=== PATIENT | male | born 1980 | race Caucasian/White ===

== ENCOUNTER 2018-11-24 22:34 | Emergency (ER) | payer MEDICARE ==
[~2018-11-24] VITALS: Ht 175.3 cm; Wt 117.9 kg
[2018-11-24 22:39] VITALS: Ht 175.3 cm; Wt 117.9 kg
[2018-11-24] MEDS ORDERED: LYRICA75 MG PO (22:40)
[2018-11-24] MEDS ORDERED: HYDROCODON-ACE1 EA10 PO (22:40)
[2018-11-25 01:49] VITALS: BP 131/74
[2018-11-25] MEDS ORDERED: TORADOL10 MG PO (20:32)
[2018-11-25 23:25] VITALS: Ht 175.3 cm; Wt 117.9 kg
== END 2018-11-25 01:49 | disposition home or self-care (01) ==
LOC: D.ER 22:34
DX: M54.5 Low back pain (principal)

== ENCOUNTER 2018-11-25 18:19 | Inpatient (IN) | payer MEDICARE ==
[~2018-11-25] VITALS: Ht 175.3 cm; Wt 118.2 kg
[~2018-11-25 18:19] MED LIST: HYDROCODON-ACE1 EA10 PO; LYRICA75 MG PO
[2018-11-25] MEDS ORDERED: TORADOL10 MG PO (20:32)
[2018-11-25 23:25] VITALS: BP 128/86; Ht 175.3 cm; Wt 118.2 kg
[2018-11-26] VITALS: BP 128/86
[2018-11-26 04:00] VITALS: BP 113/56
[2018-11-26 08:05] VITALS: BP 110/56
[2018-11-26 11:57] LABS: BASOPHILS 0.1 % (0-2); EOSINOPHILS 0 % (0-7); HEMATOCRIT 43.9 % (42.0-54.0); HEMOGLOBIN 14.9 g/dL (13.5-17.5); IMMATURE GRANULOCYTES 0.2 % (0-5); MCH 26.8 pg (26.0-34.0); MCHC 33.9 g/dL (31.0-37.0); MCV 79.1 fL (80.0-100.0); MEAN PLATELET VOLUME 10.1 fL (7.4-10.4); MONOCYTES 0.4 % (2-11); NEUTROPHILS 93.3 % (40-80); PLATELET COUNT 227 10x3/uL (130-400); RBC 5.55 10x6/uL (4.20-6.10); RDW 12.6 % (11.5-14.5); WBC 12.7 10x3/uL (4.8-10.8)
[2018-11-26 12:04] LABS: ALBUMIN 3.4 g/dL (3.4-5.0); BILIRUBIN - TOTAL 0.46 mg/dL (0.2-1.3); CALCIUM 9.5 mg/dL (8.5-10.1); CARBON DIOXIDE 22.9 mmol/L (21.0-32.0); CREATININE - SERUM 1.4 mg/dL (0.6-1.3); POTASSIUM - SERUM 4.9 mmol/L (3.5-5.1); PROTEIN - SERUM 7.7 g/dL (6.4-8.2)
[2018-11-26 12:42] VITALS: BP 146/89
[2018-11-26 17:16] VITALS: BP 121/89
[2018-11-26 19:48] VITALS: BP 128/57
[2018-11-27 00:59] VITALS: BP 135/81
[2018-11-27 05:08] VITALS: BP 110/63
[2018-11-27 06:04] LABS: BASOPHILS 0 % (0-2); EOSINOPHILS 0 % (0-7); HEMATOCRIT 40.8 % (42.0-54.0); IMMATURE GRANULOCYTES 0.3 % (0-5); LYMPHOCYTES 5.1 % (15-50); MCH 26.8 pg (26.0-34.0); MCHC 34.3 g/dL (31.0-37.0); MEAN PLATELET VOLUME 9.8 fL (7.4-10.4); MONOCYTES 1.5 % (2-11); NEUTROPHILS 93.1 % (40-80); PLATELET COUNT 242 10x3/uL (130-400); RBC 5.23 10x6/uL (4.20-6.10); RDW 12.8 % (11.5-14.5)
[2018-11-27 06:25] LABS: ALKALINE PHOSPHATASE 137 U/L (46-116); CALCIUM 9.1 mg/dL (8.5-10.1); CARBON DIOXIDE 23.5 mmol/L (21.0-32.0); CHLORIDE - SERUM 102 mmol/L (98-107); CREATININE - SERUM 1.1 mg/dL (0.6-1.3); POTASSIUM - SERUM 4.3 mmol/L (3.5-5.1); PROTEIN - SERUM 7.3 g/dL (6.4-8.2); SODIUM 135 mmol/L (136-145); UREA NITROGEN 20 mg/dL (7-18); eGFR NON AFRICAN AMERICAN 79 mL/min (90-120)
[2018-11-27 06:28] LABS: ALT (SGPT) 80 U/L (10-68); CALC OSMOLALITY 286 mosm/kg (275-300); GLUCOSE 347 mg/dL (74-106)
[2018-11-27 07:07] LABS: WBC 17.7 10x3/uL (4.8-10.8)
[2018-11-27 08:04] VITALS: BP 133/97
[2018-11-27 12:36] VITALS: BP 119/63
--- NOTE | 2018-11-27 14:46 | MORECARE ---
CASE MANAGEMENT DISCHARGE SUMMARY PATIENT: ALBERTA COLBY UNIT: [id number] ADM DATE: 11/25/18 AGE: 38 : [birth year] SEX: M ROOM/BED: D.2239 AUTHOR: JAVAD WATKINS PHYSICIAN: REFERRING PHYSICIAN: GENEVA MURPHY MD DATE OF SERVICE: 11/27/18 Discharge Plan Patient Name: ALBERTA COLBY Facility: [facility]:[place] : 1980 Planned Disposition: Home or Self Care Anticipated Discharge Date: Discharge Date: Expected LOS: Initial Reviewer: [email or web address] Initial Review Date: 11/25/2018 Generated: 11/27/18 3:45 pm Patient Name: ALBERTA COLBY Page [id number] at 1446 All edits/amendments must be made on the electronic document DICTATION DATE: 11/27/18 1445 BOTTLE ASSEMBLER: SANDRA 11/27/18 1445 RPT#: [id number] DC DATE: STATUS: ADM IN [facility] [address] [place] [address] END OF REPORT
--- NOTE | 2018-11-27 14:53 | MORECARE ---
CASE MANAGEMENT DISCHARGE SUMMARY PATIENT: ALBERTA COLBY UNIT: [id number] ADM DATE: 11/25/18 AGE: 38 : [birth year] SEX: M ROOM/BED: D.2239 AUTHOR: JUNEDOC PHYSICIAN: REFERRING PHYSICIAN: GENEVA MURPHY MD DATE OF SERVICE: 11/27/18 Discharge Plan Patient Name: ALBERTA COLBY Facility: [facility]:[place] : 1980 Planned Disposition: Home or Self Care Anticipated Discharge Date: Discharge Date: Expected LOS: Initial Reviewer: [email or web address] Initial Review Date: 11/25/2018 Generated: 11/27/18 3:53 pm Comments DCP- Discharge Planning Updated by [email or web address]: Bonnie Ramirez on 11/27/18 1:[address] Patient Name: ALBERTA COLBY Admission Status: ER Accout number: [id number] Admission Date: 11-25-2018 : 1980 Admission Diagnosis:LOW BACK PAIN Attending: GENEVA MURPHY Current LOS: 2 Anticipated DC Date: Planned Disposition: Home or Self Care Primary Insurance: MEDICARE A & B Discharge Planning Comments: CM met with patient to complete initial dc planning assessment. CM educated patient on the CM role and verbal consent given by patient to complete assessment. Patient lives at home with his . At discharge patient plans to return home and feels this is a safe discharge. CM discussed availability of home health, rehab services, and medical equipment. 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 CM will continue to follow and will assist as needed with dc plans/needs. Customer Experience Retail Clerk: Bonnie Ramirez DCPIA - Discharge Planning Initial Assessment Updated by [email or web address]: Bonnie Ramirez on 11/27/18 2:46 pm * Is the patient Alert and Oriented? Yes * How many steps to enter\exit or inside your home? * PCP MAGDA * [facility] * Preadmission Environment Home with Family * ADLs Independent * Equipment None * List name and contact numbers for known caregivers / representatives who currently or will assist patient after discharge: CT () [phone] * Verbal permission to speak to the caregivers and representatives has been obtained from the patient. N/A * Community resources currently utilized None * Additional services required to return to the preadmission environment? No * Can the patient safely return to the preadmission environment? Yes * Has this patient been hospitalized within the prior 30 days at any hospital? No Last DP export: 11/27/18 1:46 pm Patient Name: ALBERTA COLBY Page [id number] at 1453 All edits/amendments must be made on the electronic document DICTATION DATE: 11/27/181452 EDGER TAILER: SANDRA 11/27/183 RPT#: [id number] DC DATE: STATUS: ADM IN [facility] [address] [place] [address] END OF REPORT
[2018-11-27 16:25] VITALS: BP 118/67
[2018-11-27 20:14] VITALS: BP 132/92
[2018-11-28 00:41] VITALS: BP 120/70
[2018-11-28 04:35] VITALS: BP 97/60
[2018-11-28 06:55] LABS: BASOPHILS 0 % (0-2); EOSINOPHILS 0 % (0-7); HEMOGLOBIN 13.1 g/dL (13.5-17.5); IMMATURE GRANULOCYTES 0.4 % (0-5); LYMPHOCYTES 6.1 % (15-50); MCH 26.3 pg (26.0-34.0); MCHC 33.6 g/dL (31.0-37.0); MCV 78.3 fL (80.0-100.0); MONOCYTES 2.9 % (2-11); NEUTROPHILS 90.6 % (40-80); PLATELET COUNT 247 10x3/uL (130-400); RBC 4.98 10x6/uL (4.20-6.10); RDW 13.1 % (11.5-14.5); WBC 13.5 10x3/uL (4.8-10.8)
[2018-11-28 07:21] LABS: ALBUMIN 2.9 g/dL (3.4-5.0); ANION GAP 14.1 mmol/L (8-16); BILIRUBIN - TOTAL 0.24 mg/dL (0.2-1.3); CALCIUM 8.8 mg/dL (8.5-10.1); CARBON DIOXIDE 27.4 mmol/L (21.0-32.0); CREATININE - SERUM 1.2 mg/dL (0.6-1.3); POTASSIUM - SERUM 4.5 mmol/L (3.5-5.1); PROTEIN - SERUM 6.5 g/dL (6.4-8.2)
[2018-11-28 08:28] VITALS: BP 144/80
[2018-11-28] MEDS ORDERED: MEDROL DOSE PACK4 MG PO (10:49)
[2018-11-28] MEDS ORDERED: GLUCOPHAGE500 MG PO (10:49)
[2018-11-28] MEDS ORDERED: HYDROCODON-ACE1 EA10 PO ×2 (10:50→12:26)
--- NOTE | 2018-11-28 12:19 | MORECARE ---
CASE MANAGEMENT DISCHARGE SUMMARY PATIENT: ALBERTA COLBY UNIT: [id number] ADM DATE: 11/25/18 AGE: 38 : 76 SEX: M ROOM/BED: D.2239 AUTHOR: JUNEDOC PHYSICIAN: REFERRING PHYSICIAN: GENEVA MURPHY MD DATE OF SERVICE: 11/28/18 Discharge Plan Patient Name: ALBERTA COLBY Facility: [facility]:[place] : 1980 Planned Disposition: Home or Self Care Anticipated Discharge Date: Discharge Date: Expected LOS: Initial Reviewer: [email or web address] Initial Review Date: 11/25/2018 Generated: 11/28/18 1:19 pm Comments DCP- Discharge Planning Updated by [id number]: Bonnie Ramirez on 11/27/18 1:[address] Patient Name: ALBERTA COLBY Admission Status: ER Accout number: [id number] Admission Date: 11-25-2018 : 1980 Admission Diagnosis:LOW BACK PAIN Attending: GENEVA MURPHY Current LOS: 2 Anticipated DC Date: Planned Disposition: Home or Self Care Primary Insurance: MEDICARE A & B Discharge Planning Comments: CM met with patient to complete initial dc planning assessment. CM educated patient on the CM role and verbal consent given by patient to complete assessment. Patient lives at home with his . At discharge patient plans to return home and feels this is a safe discharge. CM discussed availability of home health, rehab services, and medical equipment. 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 CM will continue to follow and will assist as needed with dc plans/needs. Information Coordinator: Bonnie Ramirez DCPIA - Discharge Planning Initial Assessment Updated by [email or web address]: Bonnie Ramirez on 11/27/18 2:46 pm * Is the patient Alert and Oriented? Yes * How many steps to enter\exit or inside your home? * PCP MAGDA * [facility] * Preadmission Environment Home with Family * ADLs Independent * Equipment None * List name and contact numbers for known caregivers / representatives who currently or will assist patient after discharge: CT () [phone] * Verbal permission to speak to the caregivers and representatives has been obtained from the patient. N/A * Community resources currently utilized None * Additional services required to return to the preadmission environment? No * Can the patient safely return to the preadmission environment? Yes * Has this patient been hospitalized within the prior 30 days at any hospital? No External Providers External Provider: Kaylie [facility] Next Contact Date: Service Request Date: Service Type: Resolution: Reviewer: Comments: Coverage Notice Reviewer: [id number] Downs Notice Issued Date-Time: 11/28/2018 12:00 Notice Type: IM Discharge Notice Notice Delivered To: Patient Relationship to Patient: Self Can Runner Name: Delivery Method: HAND - Hand Delivered Radha Days: Prior Verbal Notification: Recipient Understood Notice: Yes Recipient Signature: Yes Med Rec Note Co-signed by Attending: Coverage Notice Comment: IMM explained, signed, given, copy placed in MR Reviewer: CATY Downs Notice Issued Date-Time: 11/28/2018 12:16 Notice Type: Patient Choice Letter Notice Delivered To: Patient Relationship to Patient: Self Can Runner Name: Delivery Method: HAND - Hand Delivered Radha Days: Prior Verbal Notification: Recipient Understood Notice: Yes Recipient Signature: Yes Med Rec Note Co-signed by Attending: Coverage Notice Comment: BOBY for Rayna Mendoza DP export: 11/27/18 1:53 pm Patient Name: ALBERTA COLBY Page [phone] at 1219 All edits/amendments must be made on the electronic document DICTATION DATE: 11/28/18 1219 STORE SPECIALIST: SANDRA 11/28/18 1219 RPT#: [id number] DC DATE: STATUS: ADM IN [facility] [address] [place] [address] END OF REPORT
[2018-11-28] MEDS ORDERED: FLOMAX0.4 MG PO (12:28)
--- NOTE | 2018-11-28 12:28 | MORECARE ---
CASE MANAGEMENT DISCHARGE SUMMARY PATIENT: ALBERTA COLBY UNIT: [id number] ADM DATE: 11/25/18 AGE: 38 : 76 SEX: M ROOM/BED: D.2239 AUTHOR: JUNE,DOC PHYSICIAN: REFERRING PHYSICIAN: GENEVA MURPHY MD DATE OF SERVICE: 11/28/18 Discharge Plan Patient Name: ALBERTA COLBY Facility: [facility]:[place] : 1980 Planned Disposition: Home or Self Care Anticipated Discharge Date: Discharge Date: Expected LOS: Initial Reviewer: [id number] Initial Review Date: 11/25/2018 Generated: 11/28/18 1:27 pm Comments DCP- Discharge Planning Updated by [id number]: Xiomy Downs on 11/28/18 11:[address] Patient Name: ALBERTA COLBY Encounter No: [id number] : 1980 Primary Insurance: MEDICARE A & B Anticipated DC Date: Planned Disposition: Home or Self Care External Planned Provider: : DCP follow-up note: Patient and family in agreement with discharge plan. No changes to plan. States he would like a walker to go home with. Order and clinical sent to [facility], they will pick it up on the way home. He will be given a Rx for a glucometer. He has had one in the past and states he knows how to use a glucometer. I informed him if insurance did not pay, that [employer] and [employer] have the more cost effective glucometers in [facility]. CM will continue to follow and assist with discharge planning/needs. Xiomy Downs DCP- Discharge Planning Updated by [email or web address]: Bonnie Ramirez on 11/27/18 1:[address] Patient Name: ALBERTA COLBY Admission Status: ER Accout number: [id number] Admission Date: 11-25-2018 : 1980 Admission Diagnosis:LOW BACK PAIN Attending: GENEVA MURPHY Current LOS: 2 Anticipated DC Date: Planned Disposition: Home or Self Care Primary Insurance: MEDICARE A & B Discharge Planning Comments: CM met with patient to complete initial dc planning assessment. CM educated patient on the CM role and verbal consent given by patient to complete assessment. Patient lives at home with his . At discharge patient plans to return home and feels this is a safe discharge. CM discussed availability of home health, rehab services, and medical equipment. 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 CM will continue to follow and will assist as needed with dc plans/needs. Weight Checker: Bonnie Ramirez DCPIA - Discharge Planning Initial Assessment Updated by [id number]: Bonnie Ramirez on 11/27/18 2:46 pm * Is the patient Alert and Oriented? Yes * How many steps to enter\exit or inside your home? * PCP CLOUD * [facility] * Preadmission Environment Home with Family * ADLs Independent * Equipment None * List name and contact numbers for known caregivers / representatives who currently or will assist patient after discharge: CT () [phone] * Verbal permission to speak to the caregivers and representatives has been obtained from the patient. N/A * Community resources currently utilized None * Additional services required to return to the preadmission environment? No * Can the patient safely return to the preadmission environment? Yes * Has this patient been hospitalized within the prior 30 days at any hospital? No Coverage Notice Reviewer: [email or web address] Ti Downs Notice Issued Date-Time: 11/28/2018 12:00 Notice Type: IM Discharge Notice Notice Delivered To: Patient Relationship to Patient: Self Drying Equipment Operator Name: Delivery Method: HAND - Hand Delivered Radha Days: Prior Verbal Notification: Recipient Understood Notice: Yes Recipient Signature: Yes Med Rec Note Co-signed by Attending: Coverage Notice Comment: IMM explained, signed, given, copy placed in MR Reviewer: [id number] Downs Notice Issued Date-Time: 11/28/2018 12:16 Notice Type: Patient Choice Letter Notice Delivered To: Patient Relationship to Patient: Self Drying Equipment Operator Name: Delivery Method: HAND - Hand Delivered Radha Days: Prior Verbal Notification: Recipient Understood Notice: Yes Recipient Signature: Yes Med Rec Note Co-signed by Attending: Coverage Notice Comment: BOBY HOFFMANN export: 11/28/18 11:19 am Patient Name: ALBERTA COLBY Page [id number] at 1228 All edits/amendments must be made on the electronic document DICTATION DATE: 11/28/181226 WARDROBE COORDINATOR: SANDRA 11/28/181226 RPT#: [id number] DC DATE: STATUS: ADM IN [facility] [address] [place] [address] END OF REPORT
[2018-11-28 12:37] VITALS: BP 101/53
--- NOTE | 2018-12-03 12:40 | MORECARE ---
CASE MANAGEMENT DISCHARGE SUMMARY PATIENT: ALBERTA COLBY UNIT: [id number] ADM DATE: 11/25/18 AGE: 38 : 76 SEX: M ROOM/BED: D.2239 AUTHOR: JUNE,DOC PHYSICIAN: REFERRING PHYSICIAN: GENEVA MURPHY MD DATE OF SERVICE: 12/03/18 Discharge Plan Patient Name: ALBERTA COLBY Facility: [facility]:[place] : 1980 Planned Disposition: Home or Self Care Anticipated Discharge Date: Discharge Date: 11/28/2018 Expected LOS: 0 Initial Reviewer: [email or web address] Initial Review Date: 11/25/2018 Generated: 12/03/18 1:40 pm DCP- Discharge Planning Updated by [email or web address]: Xiomy Downs on 11/28/18 11:[address] Patient Name: ALBERTA COLBY Encounter No: [id number] : 1980 Primary Insurance: MEDICARE A & B Anticipated DC Date: Planned Disposition: Home or Self Care External Planned Provider: : DCP follow-up note: Patient and family in agreement with discharge plan. No changes to plan. States he would like a walker to go home with. Order and clinical sent to [facility], they will pick it up on the way home. He will be given a Rx for a glucometer. He has had one in the past and states he knows how to use a glucometer. I informed him if insurance did not pay, that [employer] and [employer] have the more cost effective glucometers in [facility]. CM will continue to follow and assist with discharge planning/needs. Xiomy Downs DCP- Discharge Planning Updated by [email or web address]: Bonnie Ramirez on 11/27/18 1:[address] Patient Name: ALBERTA COLBY Admission Status: ER Accout number: [id number] Admission Date: 11-25-2018 : 1980 Admission Diagnosis:LOW BACK PAIN Attending: GENEVA MURPHY Current LOS: 2 Anticipated DC Date: Planned Disposition: Home or Self Care Primary Insurance: MEDICARE A & B Discharge Planning Comments: CM met with patient to complete initial dc planning assessment. CM educated patient on the CM role and verbal consent given by patient to complete assessment. Patient lives at home with his . At discharge patient plans to return home and feels this is a safe discharge. CM discussed availability of home health, rehab services, and medical equipment. 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 CM will continue to follow and will assist as needed with dc plans/needs. Arts Administrator: Bonnie Ramirez DCPIA - Discharge Planning Initial Assessment Updated by [email or web address]: Bonnie Ramirez on 11/27/18 2:46 pm * Is the patient Alert and Oriented? Yes * How many steps to enter\exit or inside your home? * PCP CLOUD * [facility] * Preadmission Environment Home with Family * ADLs Independent * Equipment None * List name and contact numbers for known caregivers / representatives who currently or will assist patient after discharge: CT () [phone] * Verbal permission to speak to the caregivers and representatives has been obtained from the patient. N/A * Community resources currently utilized None * Additional services required to return to the preadmission environment? No * Can the patient safely return to the preadmission environment? Yes * Has this patient been hospitalized within the prior 30 days at any hospital? No Coverage Notice Reviewer: [id number] Ti Downs Notice Issued Date-Time: 11/28/2018 12:00 Notice Type: IM Discharge Notice Notice Delivered To: Patient Relationship to Patient: Self Ore Fielder Name: Delivery Method: HAND - Hand Delivered Radha Days: Prior Verbal Notification: Recipient Understood Notice: Yes Recipient Signature: Yes Med Rec Note Co-signed by Attending: Coverage Notice Comment: IMM explained, signed, given, copy placed in MR Reviewer: [id number] Ti Downs Notice Issued Date-Time: 11/28/2018 12:16 Notice Type: Patient Choice Letter Notice Delivered To: Patient Relationship to Patient: Self Ore Fielder Name: Delivery Method: HAND - Hand Delivered Radha Days: Prior Verbal Notification: Recipient Understood Notice: Yes Recipient Signature: Yes Med Rec Note Co-signed by Attending: Coverage Notice Comment: BOBY HOFFMANN export: 11/28/18 11:28 am Patient Name: ALBERTA COLBY Page [phone] at 1240 All edits/amendments must be made on the electronic document DICTATION DATE: 12/03/181239 WHITING MACHINE OPERATOR: SANDRA 12/03/18 1240 RPT#: [id number] DC DATE:11/28/18 STATUS: DIS IN [facility] [address] [place] [address] END OF REPORT
== END 2018-11-28 13:36 | disposition home or self-care (01) | DRG 552 ==
LOC: D.ER 18:19 → D.MS 21:36
PROVIDERS: Family Medicine; ADMIT Internal Medicine Nephrology; ATTEND Internal Medicine Nephrology
DX: M54.16 Radiculopathy, lumbar region (principal); G83.4 Cauda equina syndrome; S39.012A Strain of muscle, fascia and tendon of lower back, initial encounter; X58.XXXA Exposure to other specified factors, initial encounter; E11.65 Type 2 diabetes mellitus with hyperglycemia

== ENCOUNTER 2019-06-12 10:56 | Emergency (ER) | payer MEDICARE ==
[~2019-06-12] VITALS: Ht 175.3 cm; Wt 113.6 kg
[~2019-06-12 10:56] MED LIST changes: +FLOMAX0.4 MG PO; +GLUCOPHAGE500 MG PO; +MEDROL DOSE PACK4 MG PO; +TORADOL10 MG PO
[2019-06-12 11:02] VITALS: Ht 175.3 cm; Wt 113.6 kg
[2019-06-12 11:22] LABS: BASOPHILS 0.1 % (0-2); EOSINOPHILS 1.2 % (0-7); HEMATOCRIT 48.9 % (42.0-54.0); HEMOGLOBIN 16.4 g/dL (13.5-17.5); IMMATURE GRANULOCYTES 0.3 % (0-5); LYMPHOCYTES 9.2 % (15-50); MCH 27.1 pg (26.0-34.0); MCHC 33.5 g/dL (31.0-37.0); MCV 80.8 fL (80.0-100.0); MEAN PLATELET VOLUME 9.3 fL (7.4-10.4); MONOCYTES 11.5 % (2-11); NEUTROPHILS 77.7 % (40-80); RBC 6.05 10x6/uL (4.20-6.10); RDW 12.9 % (11.5-14.5); WBC 6.9 10x3/uL (4.8-10.8)
[2019-06-12 11:37] LABS: CALC OSMOLALITY 274 mosm/kg (275-300); CALCIUM 9.4 mg/dL (8.5-10.1); CARBON DIOXIDE 23.7 mmol/L (21.0-32.0); CHLORIDE - SERUM 102 mmol/L (98-107); CREATININE - SERUM 1.3 mg/dL (0.6-1.3); POTASSIUM - SERUM 4.8 mmol/L (3.5-5.1); SODIUM 135 mmol/L (136-145); UREA NITROGEN 17 mg/dL (7-18); eGFR NON AFRICAN AMERICAN 65 mL/min (90-120)
[2019-06-12 11:38] LABS: GLUCOSE 160 mg/dL (74-106)
[2019-06-12 11:39] LABS: APTT 27.4 SECONDS (22.8-39.4); INR 0.99 (0.85-1.17); PROTIME 13.1 SECONDS (11.6-15.0)
[2019-06-12 11:52] LABS: ALBUMIN 3.8 g/dL (3.4-5.0); ALKALINE PHOSPHATASE 121 U/L (30-120); ALT (SGPT) 65 U/L (10-68); BILIRUBIN - TOTAL 0.55 mg/dL (0.2-1.3); CKMB 0.2 U/L (0.0-3.6); CREATINE KINASE 157 UL (21-232); PRO BNP 30 pg/mL (0-125); PROTEIN - SERUM 8.3 g/dL (6.4-8.2)
[2019-06-12 11:54] LABS: TROPONIN-I < 0.017 ng/mL (0.000-0.060)
[2019-06-12 11:59] LABS: PLATELET COUNT 170 10x3/uL (130-400)
[2019-06-12] MEDS ORDERED: IBUPROFEN800 MG PO (13:00)
[2019-06-12] MEDS ORDERED: TAMIFLU75 MG PO (13:00)
[2019-06-12] MEDS ORDERED: MUCINEX DM ER1 EAC1 PO (13:00)
[2019-06-12 13:23] VITALS: BP 109/70
== END 2019-06-12 13:27 | disposition home or self-care (01) ==
LOC: D.ER 10:56
PROVIDERS: Emergency Medicine
DX: J11.1 Influenza due to unidentified influenza virus with other respiratory manifestations (principal); R05 Cough; R50.9 Fever, unspecified; E11.9 Type 2 diabetes mellitus without complications; Z79.84 Long term (current) use of oral hypoglycemic drugs

== ENCOUNTER 2019-10-31 19:36 | Emergency (ER) | payer MEDICARE ==
[~2019-10-31] VITALS: Ht 175.3 cm; Wt 104.5 kg
[~2019-10-31 19:36] MED LIST changes: +IBUPROFEN800 MG PO; +MUCINEX DM ER1 EAC1 PO; +TAMIFLU75 MG PO
[2019-10-31 19:43] VITALS: Ht 175.3 cm; Wt 104.5 kg
[2019-10-31 20:12] LABS: BASOPHILS 0.3 % (0-2); EOSINOPHILS 1.2 % (0-7); HEMOGLOBIN 15.1 g/dL (13.5-17.5); IMMATURE GRANULOCYTES 0.3 % (0-5); MCH 26.8 pg (26.0-34.0); MCHC 32.8 g/dL (31.0-37.0); MCV 81.6 fL (80.0-100.0); MEAN PLATELET VOLUME 9.4 fL (7.4-10.4); MONOCYTES 7.6 % (2-11); NEUTROPHILS 64.6 % (40-80); RBC 5.64 10x6/uL (4.20-6.10); RDW 13.3 % (11.5-14.5); WBC 7.7 10x3/uL (4.8-10.8)
[2019-10-31 20:16] LABS: PLATELET COUNT 244 10x3/uL (130-400)
[2019-10-31 20:21] LABS: CALC OSMOLALITY 284 mosm/kg (275-300); CARBON DIOXIDE 25.7 mmol/L (21.0-32.0); CHLORIDE - SERUM 101 mmol/L (98-107); CREATININE - SERUM 1.1 mg/dL (0.6-1.3); POTASSIUM - SERUM 3.8 mmol/L (3.5-5.1); SODIUM 138 mmol/L (136-145); UREA NITROGEN 14 mg/dL (7-18); eGFR NON AFRICAN AMERICAN 78 mL/min (90-120)
[2019-10-31 20:29] LABS: GLUCOSE 248 mg/dL (74-106)
[2019-10-31 20:38] LABS: ALBUMIN 3.6 g/dL (3.4-5.0); ALKALINE PHOSPHATASE 132 U/L (30-120); ALT (SGPT) 63 U/L (10-68); BILIRUBIN - TOTAL 0.41 mg/dL (0.2-1.3); CKMB 0.6 U/L (0.0-3.6); CREATINE KINASE 179 UL (21-232); MAGNESIUM - SERUM 1.9 mg/dL (1.8-2.4); PROTEIN - SERUM 8.2 g/dL (6.4-8.2)
[2019-10-31 20:45] LABS: TROPONIN-I < 0.017 ng/mL (0.000-0.060)
[2019-10-31 20:55] LABS: APTT 28.7 SECONDS (22.8-39.4); INR 0.97 (0.85-1.17); PROTIME 12.8 SECONDS (11.6-15.0)
[2019-10-31] MEDS ORDERED: ALBUTEROL SULF8.5 GM INH (23:00)
[2019-10-31] MEDS ORDERED: BROMFED-DM COU473 ML PO (23:00)
[2019-11-01 00:38] VITALS: BP 146/80
== END 2019-10-31 23:43 | disposition home or self-care (01) ==
LOC: D.ER 19:36
PROVIDERS: Family Medicine
DX: B34.9 Viral infection, unspecified (principal); E11.65 Type 2 diabetes mellitus with hyperglycemia; Z20.828 Contact with and (suspected) exposure to other viral communicable diseases; R74.0 Nonspecific elevation of levels of transaminase and lactic acid dehydrogenase [LDH]; R06.02 Shortness of breath; R07.9 Chest pain, unspecified; R05 Cough; R51 Headache; J02.9 Acute pharyngitis, unspecified